=== PATIENT | female | born 1960 | race Caucasian/White ===

== ENCOUNTER 2018-04-27 12:16 | Observation (INO) | payer BC ==
[2018-04-27 13:16] LABS: ADD MAN DIFF? NO
[2018-04-27] MEDS: ASPIRIN 81 MG TAB PO (13:19)
[2018-04-27] MEDS: NITROGLYCERIN 2% 1 GM OINT PKT TD (13:23)
[2018-04-27 13:25] LABS: BASOPHILS % 0.5 % (0.0-2.0); EOSINOPHILS # 0.1 10^3/ul (0.0-0.5); EOSINOPHILS % 0.6 % (0.0-7.0); HEMATOCRIT 39.9 % (37.0-47.0); HEMOGLOBIN 13.2 g/dl (12.0-16.0); LYMPHOCYTES # 1.2 10^3/ul (0.8-2.9); LYMPHOCYTES % 15.3 % (15.0-51.0); MEAN CORPUSCULAR HEMOGLOBIN 31.3 pg (29.0-33.0); MEAN CORPUSCULAR HGB CONC 33.1 g/dl (32.0-37.0); MEAN CORPUSCULAR VOLUME 94.5 fl (82.0-101.0); MEAN PLATELET VOLUME 10.6 fl (7.4-10.4); MONOCYTE # 0.6 10^3/ul (0.3-0.9); MONOCYTES % 7.1 % (0.0-11.0); NEUTROPHIL # 6.1 10^3/ul (1.6-7.5); PLATELET COUNT 275 10^3/UL (140-415); RED BLOOD COUNT 4.22 10^6/ul (4.20-5.40); RED CELL DISTRIBUTION WIDTH 14.8 % (11.5-14.5)
[2018-04-27 13:43] LABS: ANION GAP 12 (5-13); BLOOD UREA NITROGEN 33 mg/dl (7-20); CARBON DIOXIDE 33 mmol/L (21-31); CHLORIDE 94 mmol/L (97-110); CREATININE 1.45 mg/dl (0.44-1.00); Estimated GFR 37 mL/min (>60); GLUCOSE 145 mg/dl (70-220); SODIUM 139 mmol/L (135-144)
[2018-04-27 13:55] LABS: TROPONIN-I < 0.012 ng/ml (0.000-0.120)
[2018-04-27] MEDS ORDERED: ACETAMINOPHEN 325 MG TAB PO (14:00)
[2018-04-27] MEDS ORDERED: ONDANSETRON 4 MG INJ IV (14:00)
[2018-04-27 18:11] LABS: DIGOXIN 0.9 ng/ml (1.0-2.0)
[2018-04-27] MEDS ORDERED: GLUCAGON 1 MG INJ IM (18:30)
[2018-04-27] MEDS ORDERED: GLUCOSE GEL 15 GRAM TUBE BUCCAL (18:30)
[2018-04-27] MEDS ORDERED: GLUCOSE GEL 15 GRAM TUBE PO ×2 (18:30)
[2018-04-27] MEDS ORDERED: DEXTROSE 50% 50 ML SYRINGE IV ×2 (18:30)
[2018-04-27 19:31] LABS: CREATINE KINASE 48 IU/L (23-200)
[2018-04-27 19:42] LABS: CK INDEX 0.9; CK-MB 0.41 ng/ml (0.0-2.4); TROPONIN-I < 0.012 ng/ml (0.000-0.120)
[2018-04-27] MEDS: INSULIN ASPART [NOVOLOG] 3 ML PEN SC (20:50)
[2018-04-27] MEDS: ATORVASTATIN 20 MG TAB PO (20:54)
[2018-04-27] MEDS: ISOSORBIDE DINITRATE 10 MG TAB PO (20:54)
[2018-04-27] MEDS: GUAIFENESIN/CODEINE 5ML CUP PO (20:57)
[2018-04-27] MEDS: ACETAMINOPHEN 500 MG TAB PO (22:21)
[2018-04-28] MEDS: NITROGLYCERIN (SL) 0.4 MG TAB SL ×5 (00:30→07:27)
[2018-04-28] MEDS: ACCU-CHEK XX (01:04)
[2018-04-28 01:39] LABS: CK-MB 0.36 ng/ml (0.0-2.4); TROPONIN-I < 0.012 ng/ml (0.000-0.120)
[2018-04-28 01:59] LABS: CK INDEX 0.7; CREATINE KINASE 51 IU/L (23-200)
[2018-04-28] MEDS: GUAIFENESIN/CODEINE 5ML CUP PO (04:10)
[2018-04-28] MEDS: INSULIN ASPART [NOVOLOG] 3 ML PEN SC ×3 (08:00→17:28)
[2018-04-28] MEDS: CLOPIDOGREL 75 MG TAB PO (08:30)
[2018-04-28] MEDS: AMLODIPINE 10 MG TAB PO (08:31)
[2018-04-28] MEDS: ISOSORBIDE DINITRATE 10 MG TAB PO ×2 (08:31→13:00)
[2018-04-28] MEDS: METOPROLOL (XL) 50 MG TAB PO (08:31)
[2018-04-28] MEDS: ASPIRIN (EC) 81 MG TAB PO (08:32)
[2018-04-28] MEDS: LOSARTAN 25 MG TAB PO (08:32)
[2018-04-28 11:45] LABS: TRIGLYCERIDES 199 mg/dl (0-149)
[2018-04-28 11:45] LABS: CHOLESTEROL 136 mg/dl (100-200)
[2018-04-28] MEDS ORDERED: REGADENOSON 0.4 MG/5 ML SYG (12:06)
[2018-04-28 13:10] LABS: CHOL/HDL RATIO 4.6 RATIO; LDL CHOLESTEROL,CALCULATED 67 mg/dl
[2018-04-28 13:11] LABS: HDL CHOLESTEROL 29 mg/dl (35-98)
[2018-04-28] MEDS: METOPROLOL 100 MG TAB PO (17:30)
== END 2018-04-28 19:04 | disposition home or self-care (01) ==
LOC: E/R 12:16 → 6WM 13:55
DX: R07.9 Chest pain, unspecified (principal); E11.9 Type 2 diabetes mellitus without complications; I10 Essential (primary) hypertension; I48.0 Paroxysmal atrial fibrillation; I25.10 Atherosclerotic heart disease of native coronary artery without angina pectoris; Z95.1 Presence of aortocoronary bypass graft; Z95.5 Presence of coronary angioplasty implant and graft; J45.909 Unspecified asthma, uncomplicated; E78.00 Pure hypercholesterolemia, unspecified; Z79.82 Long term (current) use of aspirin; Z95.0 Presence of cardiac pacemaker
CPT/HCPCS: 71045; 78452; 80048; 80061; 80162; 82550; 82553; 82962; 84484; 85025; 93017; 93306; 99285-25; G0378

== ENCOUNTER 2018-09-06 07:42 | Day surgery (SDC) | payer BC ==
[~2018-09-06 07:42] MED LIST: DIAZEPAM 5 MG TAB PO; DIPHENHYDRAMINE 50 MG CAP PO; FAMOTIDINE 20 MG TAB PO; SOD CHLORIDE 0.45% 1,000 ML IV
[2018-09-06 08:29] LABS: ADD MAN DIFF? NO
[2018-09-06 08:37] LABS: WHITE BLOOD COUNT 8.8 10^3/ul (4.8-10.8)
[2018-09-06 08:37] LABS: BASOPHILS % 0.5 % (0.0-2.0); EOSINOPHILS # 0.1 10^3/ul (0.0-0.5); EOSINOPHILS % 1.5 % (0.0-7.0); HEMOGLOBIN 13.3 g/dl (12.0-16.0); LYMPHOCYTES # 1.5 10^3/ul (0.8-2.9); LYMPHOCYTES % 16.9 % (15.0-51.0); MEAN CORPUSCULAR HEMOGLOBIN 30.4 pg (29.0-33.0); MEAN CORPUSCULAR HGB CONC 32.4 g/dl (32.0-37.0); MEAN CORPUSCULAR VOLUME 93.8 fl (82.0-101.0); MONOCYTE # 0.6 10^3/ul (0.3-0.9); MONOCYTES % 6.9 % (0.0-11.0); NEUTROPHIL # 6.5 10^3/ul (1.6-7.5); NEUTROPHILS % 73.6 % (39.0-77.0); PLATELET COUNT 283 10^3/UL (140-415); RED BLOOD COUNT 4.37 10^6/ul (4.20-5.40); RED CELL DISTRIBUTION WIDTH 14.7 % (11.5-14.5)
[2018-09-06 08:57] LABS: INR 0.94; PROTIME 12.7 Sec (11.9-14.9)
[2018-09-06 08:58] LABS: PARTIAL THROMBOPLASTIN TIME 25.1 Sec (23.0-35.0)
[2018-09-06 09:04] LABS: CHOL/HDL RATIO 4.7 RATIO; HDL CHOLESTEROL 26 mg/dl (35-98); LDL CHOLESTEROL,CALCULATED 58 mg/dl; TRIGLYCERIDES 193 mg/dl (0-149)
[2018-09-06 09:04] LABS: CHOLESTEROL 123 mg/dl (100-200)
[2018-09-06 09:05] LABS: ANION GAP 12 (5-13); CALCIUM 9.5 mg/dl (8.4-10.2); CARBON DIOXIDE 28 mmol/L (21-31); CHLORIDE 97 mmol/L (97-110); Estimated GFR 43 mL/min (>60); GLUCOSE 155 mg/dl (70-220); POTASSIUM 4.5 mmol/L (3.5-5.1); SODIUM 137 mmol/L (135-144)
[2018-09-06 09:17] LABS: BLOOD UREA NITROGEN 52 mg/dl (7-20); CREATININE 1.26 mg/dl (0.44-1.00)
[2018-09-06] MEDS ORDERED: FENTAnyl 50 MCG/ML VIAL (11:45)
[2018-09-06] MEDS ORDERED: MIDAZOLAM 1 MG/ML 2 ML INJ (11:45)
[2018-09-06] MEDS ORDERED: IODIXANOL LOCM 100 ML BTL (12:42)
[2018-09-06] MEDS ORDERED: LIDOCAINE 1% (MDV) 20 ML INJ (12:42)
[2018-09-06] MEDS ORDERED: morphine 2 MG INJ IV (13:00)
[2018-09-06] MEDS: SOD CHLORIDE 0.9% 1,000 ML IV (13:00)
[2018-09-06] MEDS: ACETAMINOPHEN 325 MG TAB PO (14:06)
== END 2018-09-06 17:05 | disposition home or self-care (01) ==
LOC: CCL 07:42 → SDS 07:42 → CCL 17:05
DX: I25.10 Atherosclerotic heart disease of native coronary artery without angina pectoris (principal); I10 Essential (primary) hypertension; E78.5 Hyperlipidemia, unspecified; E11.9 Type 2 diabetes mellitus without complications; J45.909 Unspecified asthma, uncomplicated; Z95.810 Presence of automatic (implantable) cardiac defibrillator
CPT/HCPCS: 71045; 80048; 80061; 82962; 85025; 85610; 85730; 93005; 93460